=== PATIENT | female | born 1940 | race Caucasian/White ===

== ENCOUNTER 2024-03-30 08:44 | Inpatient (IN) | payer MEDICARE, BC ==
[2024-03-30] MEDS ORDERED: Docusate Sodium 100 MG Cap PO PRN (14:54)
[2024-03-30] MEDS ORDERED: Ondansetron 4 MG Tab.DIS PO PRN (14:54)
[2024-03-30] MEDS: Carvedilol 3.125 MG Tab PO SCH (16:34)
[2024-03-30] MEDS: Acyclovir 200 MG Cap PO SCH (20:34)
[2024-03-30] MEDS: Apixaban 5 MG Tab PO SCH (20:34)
[2024-03-30] MEDS: Amoxicillin/Clavulanate K 500-125 MG Tab PO SCH (20:34)
[2024-03-30] MEDS: Simvastatin 10 MG Tab PO SCH (20:34)
[2024-03-31] MEDS: Cholecalciferol (Vitamin D3) 25 MCG Tab PO SCH (08:39)
[2024-03-31] MEDS: Calcium Carbonate/Vitamin D3 1250 MG-5 MCG Tab PO SCH (08:40)
[2024-03-31] MEDS: Vitamin B Complex Cap PO SCH (08:40)
[2024-03-31] MEDS: Carvedilol 3.125 MG Tab PO SCH (08:42)
[2024-03-31] MEDS: Carbamide Peroxide 6.5% Otic Soln 15 ML Bottle EARBOTH SCH (21:16)
[2024-04-05 07:41] VITALS: BP 131/72; PULSE 86
== END 2024-04-05 13:45 | disposition home health service (06) | DRG 947 ==
LOC: DL.MS 13:46
PROVIDERS: ADMIT Internal Medicine; ATTEND Internal Medicine
DX: R53.1 Weakness (principal); A41.9 Sepsis, unspecified organism; J18.9 Pneumonia, unspecified organism; N39.0 Urinary tract infection, site not specified; C90.00 Multiple myeloma not having achieved remission; I48.91 Unspecified atrial fibrillation; D63.8 Anemia in other chronic diseases classified elsewhere; N18.9 Chronic kidney disease, unspecified; I12.9 Hypertensive chronic kidney disease with stage 1 through stage 4 chronic kidney disease, or unspecified chronic kidney disease; H54.7 Unspecified visual loss; M81.0 Age-related osteoporosis without current pathological fracture; M19.90 Unspecified osteoarthritis, unspecified site; F41.9 Anxiety disorder, unspecified; K21.9 Gastro-esophageal reflux disease without esophagitis; E78.00 Pure hypercholesterolemia, unspecified; Z88.8 Allergy status to other drugs, medicaments and biological substances; Z79.01 Long term (current) use of anticoagulants; Z98.49 Cataract extraction status, unspecified eye; Z79.899 Other long term (current) drug therapy
CPT/HCPCS: 97110-GO; 97110-GP; 97116-GP; 97161-GP; 97165-GO; 97530-GO; 97530-GP; 97535-GO; 99306; 99308; 99316; A9270-GY

== ENCOUNTER 2024-10-28 18:24 | Emergency (ER) | payer MEDICARE, BC ==
[2024-10-28] MEDS: Ketorolac 30 MG/ML SDV IM ONE (18:31)
[2024-10-28 18:55] VITALS: BP 122/74; PULSE 61
== END 2024-10-28 19:11 | disposition home or self-care (01) ==
LOC: DL.ED 18:24
DX: S49.91XA Unspecified injury of right shoulder and upper arm, initial encounter (principal); E78.00 Pure hypercholesterolemia, unspecified; I10 Essential (primary) hypertension; K21.9 Gastro-esophageal reflux disease without esophagitis; Z79.899 Other long term (current) drug therapy; Z79.01 Long term (current) use of anticoagulants; W01.0XXA Fall on same level from slipping, tripping and stumbling without subsequent striking against object, initial encounter; Y93.89 Activity, other specified
CPT/HCPCS: 73060; 96372; 99284; J1885